=== PATIENT | female | born 2000 | race African-American/Black ===

== ENCOUNTER 2020-03-24 12:34 | Emergency (ER) | payer MEDICAID ==
[~2020-03-24] VITALS: Ht 154.9 cm; Wt 81.0 kg
[2020-03-24 15:39] LABS: HCG SCREEN NEGATIVE
[2020-03-24 16:32] VITALS: BP 127/84
== END 2020-03-24 16:33 | disposition home or self-care (01) ==
LOC: ER 12:34
DX: R11.10 Vomiting, unspecified (principal); J45.909 Unspecified asthma, uncomplicated
CPT/HCPCS: 81025; 84703; 93005; 99284

== ENCOUNTER 2024-06-29 11:36 | Emergency (ER) | payer MEDICAID ==
[~2024-06-29] VITALS: Ht 162.6 cm; Wt 78.0 kg
[2024-06-29 12:04] VITALS: O2SAT 98
[2024-06-29] MEDS: KETOROLAC 30MG/ML VIAL IM ONE (15:39)
[2024-06-29] MEDS: DIPHENHYDRAMINE 25MG CAPSULE PO ONE (15:39)
[2024-06-29] MEDS: METOCLOPRAMIDE HCL 10MG TABLET PO ONE (15:39)
[2024-06-29 16:32] VITALS: BP 132/88; PULSE 62; RESP 16; TEMP 36.83628; O2SAT 98
== END 2024-06-29 16:33 | disposition home or self-care (01) ==
LOC: ER 11:36
DX: R51.9 Headache, unspecified (principal); J45.909 Unspecified asthma, uncomplicated; Z90.49 Acquired absence of other specified parts of digestive tract
CPT/HCPCS: 99285; 70450; 96372; Q0163; J8597; J1885